=== PATIENT | male | born 1965 | race Caucasian/White ===

== ENCOUNTER 2016-11-04 08:56 | Emergency (ER) | payer SELFPAY ==
[~2016-11-04] VITALS: Ht 160 cm; Wt 56.1 kg
[~2016-11-04 08:56] MED LIST: ACYC400T2 PO; BACTDS PO; CEPH-443 PO; IBUP-1542 PO; IBUP800T25 PO; VENL75TA61 PO
[2016-11-04 08:57] VITALS: Ht 160 cm; Wt 56.1 kg
--- NOTE | 2016-11-04 09:45 | ERD ---
ER Documentation Chief Complaint Date/Time DATE: 11/04/16 TIME: 09:[address] X 4 DAYS HPI 50-year-old otherwise healthy male presents to the emergency department complaining of a 4 day history of constant 7 out of 10 sore throat which is worse with swallowing. Patient notes associated fever and chills last night. Patient has been treating his sore throat with Motrin at home with mild relief. Patient denies any cough, runny nose, body aches, headache ROS All systems reviewed and are negative except as per history of present illness. Medications Home Meds Active Scripts Azithromycin* (Zithromax*) 250 Mg Tablet, 250 MG PO .ZPACK DIRECTED, #6 TAB TAKE 500 MG (2 TABS) THE FIRST DAY THEN 250 MG (1 TAB) DAYS 2-5 Prov:LUCINDA FLOYD PA-C 11/04/16 Ibuprofen* (Motrin*) 600 Mg Tab, 600 MG PO BID, #30 TAB 0 Refills Prov:SHANNEN GAY PA-C 09/20/15 Sulfamethoxazole-Trimethoprim* (Bactrim* DS) 800-160 Mg Tab, 1 TAB PO BID, #14 TAB 0 Refills Prov:SHANNEN GAY PA-C 09/20/15 Cephalexin* (Keflex*) 500 Mg Capsule, 500 MG PO TID, #21 CAP 0 Refills Prov:SHANNEN GAY PA-C 09/20/15 Ibuprofen* (Motrin*) 800 Mg Tab, 800 MG PO Q6H Y for PAIN AND OR ELEVATED TEMP, #30 TAB Prov:ALEX FAN NP 04/18/15 Acyclovir* (Acyclovir*) 400 Mg Tablet, 400 MG PO TID for 5 Days, TAB Prov:ALEX FAN NP 04/18/15 Reported Medications Venlafaxine Hcl (Effexor) 75 Mg Tablet, 75 MG PO DAILY, 0 Refills 11/18/12 Allergies Allergies: Coded Allergies: Penicillins (Verified Allergy, Unknown, 11/04/16) acetaminophen (Verified Allergy, Unknown, 11/04/16) confusion; stomach pain hydrocodone bit (Verified Allergy, Unknown, 11/04/16) confusion; stomach pain meperidine (Verified Allergy, Unknown, 11/04/16) morphine (Verified Adverse Reaction, Mild, 03/17/13) PMhx/Soc History of Surgery: Yes (knee surgery) Anesthesia Reaction: No Hx Neurological Disorder: No Hx Respiratory Disorders: No Hx Cardiac Disorders: No Hx Psychiatric Problems: Yes (DEPRESSION) Hx Miscellaneous Medical Probl: No Hx Alcohol Use: Yes (socially) Hx Substance Use: No Hx Tobacco Use: No Smoking Status: Never smoker Physical Exam Vitals Vital Signs Date Time Temp Pulse Resp B/P Pulse Ox O2 Delivery O2 Flow Rate FiO2 11/04/16 08:57 98.1 75 18 120/79 99 Physical Exam Const: Well-developed, well-nourished, no acute distress Head: Atraumatic Eyes: Normal Conjunctiva ENT: Oropharynx erythematous with bilateral tonsillar swelling. Exudates noted on the right tonsil. Anterior lymphadenopathy. Normal External Ears, Nose and Mouth. Neck: Full range of motion..~ No meningismus. Resp: Clear to auscultation bilaterally Cardio: Regular rate and rhythm, no murmurs Abd: Soft, non tender, non distended. Normal bowel sounds Skin: No petechiae or rashes Back: No midline or flank tenderness Ext: No cyanosis, or edema Neur: Awake and alert Psych: Normal Mood and Affect Results 24 hrs Current Medications Medications (Trade) Dose Ordered Sig/Acacia Route PRN Reason Start Time Stop Time Status Last Admin Dose Admin Lidocaine (Xylocaine (Viscous)) 15 ml ONCE ONCE PO 11/04/16 10:00 11/04/16 10:01 11/04/16 09:49 Ibuprofen (Motrin) 600 mg ONCE ONCE PO 11/04/16 10:00 11/04/16 10:01 11/04/16 09:49 Procedures/MDM The patient's clinical presentation is very consistent with acute bacterial pharyngitis. The patient does not exhibit any clinical signs or symptoms concerning for serious bacterial infection or systemic illness. Based on history and clinical exam findings the patient does not appear to have evidence of pneumonia, urinary tract infection, bacteremia, sepsis, or meningitis. For these reasons I do not believe it is necessary to obtain laboratory testing or diagnostic imaging. I believe it would be appropriate for symptom control, and close outpatient primary care follow-up. Based on patient's history of present illness and physical examination the decision was made to discharge. The patient was re-evaluated after ED treatment and stabilizing measures, and symptoms have improved. There is no evidence of life threatening injuries or illnesses at this time. On re-examination, patient resting in no distress, stable vital signs, reports feeling better and safe for discharge with outpatient follow up with PMD in 1-2 days. Patient given return precautions. LUCINDA FLOYD PA-C Nov 04, 2016 09:45
[2016-11-04] MEDS ORDERED: AZIT250T94 PO (09:55)
[2016-11-04] MEDS ORDERED: PRED20TA PO (09:59)
[2016-11-04] MEDS ORDERED: LIDOCAINE 2% VISC 15 ML CUP PO ONE (10:00)
[2016-11-04] MEDS ORDERED: IBUPROFEN 600 MG TAB PO ONE (10:00)
== END 2016-11-04 10:20 | disposition home or self-care (01) ==
LOC: FTE 08:56
DX: J02.8 Acute pharyngitis due to other specified organisms (principal); B96.89 Other specified bacterial agents as the cause of diseases classified elsewhere
CPT/HCPCS: 99284

== ENCOUNTER 2016-12-23 09:02 | Emergency (ER) | payer SELFPAY ==
[~2016-12-23] VITALS: Ht 170.2 cm; Wt 58.5 kg
[~2016-12-23 09:02] MED LIST changes: +AZIT250T94 PO; +PRED20TA PO
[2016-12-23 09:05] VITALS: Ht 170.2 cm; Wt 58.5 kg
[2016-12-23] MEDS ORDERED: AZIT250T94 PO (09:52)
[2016-12-23] MEDS ORDERED: DIPH1TAB PO (09:52)
[2016-12-23] MEDS ORDERED: IBUP-1542 PO (09:52)
--- NOTE | 2016-12-24 10:45 | ERD ---
ER Documentation Chief Complaint Date/Time DATE: 12/24/16 TIME: 10:32 Chief Complaint sore throat HPI This is a 51 year old male without any significant medical history who presents to the ED with sore throat and runny nose for 2 days. Pt states that he had the same symptoms when he was diagnosed with pharyngitis on his last ED visit. Denies fever, cough, drooling, dysphagia, nausea, vomiting, wheezing, shortness of breath or chest pain. Denies any recent sick contacts or foreign travel. Pt did not take any medications for symptom relief. Pt states that he was prescribed with azithromycin for his pharyngitis but developed diarrhea. ROS All systems reviewed and are negative except as per history of present illness. Medications Home Meds Active Scripts Ibuprofen* (Motrin*) 600 Mg Tab, 600 MG PO Q6H Y for PAIN AND OR ELEVATED TEMP, #30 TAB Prov:IMELDA MCFADDEN 12/23/16 Diphenoxylate HCl/Atropine (Lomotil 2.5-0.025 mg Tablet) 1 Each Tablet, 1 TAB PO QID Y for DIARRHEA, #10 TAB Prov:IMELDA MCFADDEN 12/23/16 Azithromycin* (Zithromax*) 250 Mg Tablet, 250 MG PO .ZPACK DIRECTED, #6 TAB TAKE 500 MG (2 TABS) THE FIRST DAY THEN 250 MG (1 TAB) DAYS 2-5 Prov:IMELDA MCFADDEN 12/23/16 Prednisone* (Prednisone*) 20 Mg Tab, 40 MG PO DAILY for 4 Days, TAB Prov:LUCINDA FLOYD PA-C 11/04/16 Azithromycin* (Zithromax*) 250 Mg Tablet, 250 MG PO .ZPACK DIRECTED, #6 TAB TAKE 500 MG (2 TABS) THE FIRST DAY THEN 250 MG (1 TAB) DAYS 2-5 Prov:LUCINDA FLOYD-C 11/04/16 Ibuprofen* (Motrin*) 600 Mg Tab, 600 MG PO BID, #30 TAB 0 Refills Prov:SHANNEN GAY PA-C 09/20/15 Sulfamethoxazole-Trimethoprim* (Bactrim* DS) 800-160 Mg Tab, 1 TAB PO BID, #14 TAB 0 Refills Prov:SHANNEN GAY PA-C 09/20/15 Cephalexin* (Keflex*) 500 Mg Capsule, 500 MG PO TID, #21 CAP 0 Refills Prov:VICTOR HUGOSHANNEN STOLL 09/20/15 Ibuprofen* (Motrin*) 800 Mg Tab, 800 MG PO Q6H Y for PAIN AND OR ELEVATED TEMP, #30 TAB Prov:ALEX FAN. [employer]HWALKING GUIDE 04/18/15 Acyclovir* (Acyclovir*) 400 Mg Tablet, 400 MG PO TID for 5 Days, TAB Prov:ALEX FAN. [employer]HWALKING GUIDE 04/18/15 Reported Medications Venlafaxine Hcl (Effexor) 75 Mg Tablet, 75 MG PO DAILY, 0 Refills 11/18/12 Allergies Allergies: Coded Allergies: Penicillins (Verified Allergy, Unknown, 11/04/16) acetaminophen (Verified Allergy, Unknown, 11/04/16) confusion; stomach pain hydrocodone bit (Verified Allergy, Unknown, 11/04/16) confusion; stomach pain meperidine (Verified Allergy, Unknown, 11/04/16) morphine (Verified Adverse Reaction, Mild, 03/17/13) PMhx/Soc History of Surgery: Yes (knee surgery) Anesthesia Reaction: No Hx Neurological Disorder: No Hx Respiratory Disorders: No Hx Cardiac Disorders: No Hx Psychiatric Problems: Yes (DEPRESSION) Hx Miscellaneous Medical Probl: No Hx Alcohol Use: Yes (socially) Hx Substance Use: No Hx Tobacco Use: No Physical Exam Vitals Vital Signs Date Time Temp Pulse Resp B/P Pulse Ox O2 Delivery O2 Flow Rate FiO2 12/23/16 09:05 97.6 50 18 120/66 98 Physical Exam CONST: Well-developed, well-nourished, in no acute distress. Nontoxic in appearance. HEENT: Erythematous oropharynx with bilateral tonsillar exudates. Atraumatic. Normal conjunctiva. EOM intact. TM intact. External ear is normal. No uvular deviation. Moist mucous membranes. Supple neck. No meningismus. No submandibular induration. RESP: Clear to auscultation bilaterally. No wheezing. CARDIO: Regular rate and rhythm, no murmurs. ABD: Soft, non tender, non distended. Normal bowel sounds. No McBurney' s point tenderness. No guarding or rigidity. No peritoneal signs. SKIN: No petechiae or rashes. BACK: No midline or flank tenderness. EXT: No cyanosis or edema. Distal pulses equal and bilateral. NEURO: Awake and alert, appropriate for age. 5/5 strength in all extremities. Normal speech. Steady gait. Procedures/MDM EMERGENCY DEPARTMENT COURSE/MEDICAL DECISION MAKING This is a 51 year old male who comes to the emergency room secondary to complaints of sore throat and runny nose for 3 days. Physical exam shows erythematous oropharynx with bilateral tonsillar exudates. Pt is afebrile and nontoxic and appearance. Pt had a previous history of pharyngitis that was resolved by azithromycin, but pt states that diarrhea with azithromycin but was managed by lomotil from his PCP. Pt is insisting to have the antidiarrheal prn prescribed for him. My primary diagnosis is pharyngitis. Secondary diagnosis is sore throat. Differential diagnoses considered but not limited to pneumonia, bronchitis, influenza, upper respiratory infection, asthma, pharyngitis, peritonsillar abscess, otitis media, otitis externa. Pt is hemodynamically stable upon reassessment. There are no new complaints during the ED course. The patient was discharged for outpatient management with a prescription for azithromycin, ibuprofen and lomotil. The patient was advised to followup with their PMD in 1-2 days and to return to the Emergency Department if there are any new or worsening symptoms. The patient understood and agreed with the diagnosis, treatment and plan. Patient is stable for discharge at this time. Departure Diagnosis: Primary Impression: Pharyngitis Pharyngitis/tonsillitis etiology: unspecified etiology Qualified Code: J02.9 - Pharyngitis, unspecified etiology Additional Impression: Sore throat Condition: Stable Patient Instructions: Pharyngitis, Strep (Presumed) Referrals: [facility] YOU HAVE RECEIVED A MEDICAL SCREENING EXAM AND THE RESULTS INDICATE THAT YOU DO NOT HAVE A CONDITION THAT REQUIRES URGENT TREATMENT IN THE EMERGENCY DEPARTMENT. FURTHER EVALUATION AND TREATMENT OF YOUR CONDITION CAN WAIT UNTIL YOU ARE SEEN IN YOUR DOCTORS OFFICE WITHIN THE NEXT 1-2 DAYS. IT IS YOUR RESPONSIBILITY TO MAKE AN APPOINTMENT FOR FOL- CARE. IF YOU HAVE A PRIMARY DOCTOR --you should call your primary doctor and schedule an appointment IF YOU DO NOT HAVE A PRIMARY DOCTOR YOU CAN CALL OUR PHYSICIAN REFERRAL HOTLINE AT IF YOU CAN NOT AFFORD TO SEE A PHYSICIAN YOU CAN CHOSE FROM THE FOLLOWING [facility] [address] [facility]. [place] [address] [facility] [address] [facility] [address] [facility] [address] [facility]. [facility]. [address]. [facility] YOU HAVE RECEIVED A MEDICAL SCREENING EXAM AND THE RESULTS INDICATE THAT YOU DO NOT HAVE A CONDITION THAT REQUIRES URGENT TREATMENT IN THE EMERGENCY DEPARTMENT. FURTHER EVALUATION AND TREATMENT OF YOUR CONDITION CAN WAIT UNTIL YOU ARE SEEN IN YOUR DOCTORS OFFICE WITHIN THE NEXT 1-2 DAYS. IT IS YOUR RESPONSIBILITY TO MAKE AN APPOINTMENT FOR FOLOW-UP CARE. IF YOU HAVE A PRIMARY DOCTOR --you should call your primary doctor and schedule and appointment IF YOU DO NOT HAVE A PRIMARY DOCTOR YOU CAN CALL OUR PHYSICIAN REFERRAL HOTLINE AT . IF YOU CAN NOT AFFORD TO SEE A PHYSICIAN YOU CAN CHOSE FROM THE FOLLOWING [facility] INSTITUTIONS: [facility] [address] [place] [address] [facility] [address] [place] [address] [facility] [place] [address] [place] [address] Additional Instructions: Increase fluid intake. Call your primary care doctor tomorrow for an appointment during the next 1-2 days. Return to the emergency department immediately should you have any new or worsening symptoms. Take all medications as directed. IMELDA MCFADDEN December 24, 2016 10:44
== END 2016-12-23 10:13 | disposition home or self-care (01) ==
LOC: FTE 09:02
DX: J02.9 Acute pharyngitis, unspecified (principal)
CPT/HCPCS: 99284